=== PATIENT | male | born 1985 | race Caucasian/White ===

== ENCOUNTER 2018-09-12 15:07 | Emergency (ER) | payer MEDICAID, OTHER ==
[~2018-09-12] VITALS: Ht 180.3 cm; Wt 85.2 kg
[2018-09-12 15:21] VITALS: BP 105/69
== END 2018-09-12 17:09 | disposition home or self-care (01) ==
LOC: ED 17:03
DX: K04.7 Periapical abscess without sinus (principal); R11.0 Nausea
CPT/HCPCS: 99283

== ENCOUNTER 2018-09-17 19:03 | Emergency (ER) | payer MEDICAID ==
[~2018-09-17] VITALS: Ht 180.3 cm; Wt 86.4 kg
[2018-09-17 19:07] VITALS: BP 120/81
== END 2018-09-17 19:27 | disposition home or self-care (01) ==
LOC: ED 19:16
DX: K04.7 Periapical abscess without sinus (principal); Z76.0 Encounter for issue of repeat prescription
CPT/HCPCS: 99283

== ENCOUNTER 2020-01-22 21:16 | Emergency (ER) | payer MEDICAID, OTHER ==
[~2020-01-22] VITALS: Ht 180.3 cm; Wt 98.8 kg
[2020-01-22 21:19] VITALS: BP 104/66
--- NOTE | 2020-01-22 23:16 | NUR ---
MEDICAL DIR: d/c from triage. D/c instructions given. All questions and concerns addressed. Clothing provided. Patient ambulatory with a steady gait. Belongings with patient.
== END 2020-01-22 23:18 | disposition home or self-care (01) ==
LOC: ED 21:46
DX: S20.219A Contusion of unspecified front wall of thorax, initial encounter (principal); F10.120 Alcohol abuse with intoxication, uncomplicated; Z59.0 Homelessness; Z72.9 Problem related to lifestyle, unspecified; F17.210 Nicotine dependence, cigarettes, uncomplicated; Y90.0 Blood alcohol level of less than 20 mg/100 ml; W22.8XXA Striking against or struck by other objects, initial encounter; Y93.89 Activity, other specified; Y92.89 Other specified places as the place of occurrence of the external cause; Y99.8 Other external cause status
CPT/HCPCS: 71046; 99283; 99406